=== PATIENT | female | born 1960 | race Caucasian/White ===

== ENCOUNTER 2017-07-30 15:24 | Emergency (ER) | payer BC, MEDICAID ==
[~2017-07-30] VITALS: Ht 167.6 cm; Wt 88.0 kg
[2017-07-30 15:26] VITALS: Ht 167.6 cm; Wt 88.0 kg
[2017-07-30] MEDS ORDERED: KETOROLAC 15 MG INJ IV STA (18:01)
[2017-07-30] MEDS ORDERED: SOD CHLORIDE 0.9% 500 ML IV STA (18:01)
[2017-07-30] MEDS ORDERED: ONDANSETRON 4 MG INJ IV STA (18:01)
[2017-07-30 18:18] LABS: BASOPHILS % 0.4 % (0.0-2.0); EOSINOPHILS % 0.2 % (0.0-7.0); HEMATOCRIT 45.3 % (37.0-47.0); HEMOGLOBIN 15.4 g/dl (12.0-16.0); LYMPHOCYTES # 2.4 10^3/ul (0.8-2.9); LYMPHOCYTES % 24.6 % (15.0-51.0); MEAN CORPUSCULAR HEMOGLOBIN 29.8 pg (29.0-33.0); MEAN CORPUSCULAR VOLUME 87.8 fl (82.0-101.0); MEAN PLATELET VOLUME 9.5 fl (7.4-10.4); MONOCYTE # 0.5 10^3/ul (0.3-0.9); MONOCYTES % 5.1 % (0.0-11.0); NEUTROPHIL # 6.6 10^3/ul (1.6-7.5); NEUTROPHILS % 69.3 % (39.0-77.0); PLATELET COUNT 244 10^3/UL (140-415); RED BLOOD COUNT 5.16 10^6/ul (4.20-5.40); RED CELL DISTRIBUTION WIDTH 13.5 % (11.5-14.5); WHITE BLOOD COUNT 9.6 10^3/ul (4.8-10.8)
[2017-07-30] MEDS ORDERED: LORAZEPAM 0.5 MG TAB PO ONE (18:30)
[2017-07-30 18:37] LABS: ALANINE AMINOTRANSFERASE 38 IU/L (13-69); ALBUMIN 4.6 g/dl (3.3-4.9); ALBUMIN/GLOBULIN RATIO 1.53; ASPARTATE AMINO TRANSFERASE 25 IU/L (15-46); BILIRUBIN,INDIRECT 0.3 mg/dl (0-1.1); BILIRUBIN,TOTAL 0.3 mg/dl (0.2-1.3); BLOOD UREA NITROGEN 12 mg/dl (7-20); CARBON DIOXIDE 29 mmol/L (21-31); CREATININE 0.74 mg/dl (0.44-1.00); GLUCOSE 98 mg/dl (70-220); POTASSIUM 4.1 mmol/L (3.5-5.1); SODIUM 141 mmol/L (135-144); TOTAL PROTEIN 7.6 g/dl (6.1-8.1)
[2017-07-30 18:39] LABS: ALKALINE PHOSPHATASE 101 IU/L (42-121); ANION GAP 12 (8-16); CALCIUM 9.9 mg/dl (8.4-10.2); CHLORIDE 104 mmol/L (97-110)
[2017-07-30 18:52] LABS: TROPONIN-I < 0.012 ng/ml (0.00-0.12)
--- NOTE | 2017-07-30 19:27 | ERD ---
ER Documentation Chief Complaint Date/Time DATE: 07/30/17 TIME: 19:27 Chief Complaint pt c/o hypertension and head and neck pain x 1 wk HPI 56-year-old woman complains of hypertension all week despite using her medications, she has intermittent headaches as well. She has a long history of headaches and denies that this is the worst headache of her life. She has also been feeling anxious. She denies fevers or chills, no neck stiffness, no chest pain or shortness of breath, no vomiting or diarrhea. Patient denies dysuria. ROS All systems reviewed and are negative except as per history of present illness. Medications Home Meds Active Scripts Ibuprofen* (Ibuprofen*) 600 Mg Tablet, 600 MG PO Q8 for PAIN AND/OR INFLAMMATION , #30 TAB Prov:DAVIS CONKLIN MD 07/30/17 Reported Medications Verapamil Hcl* (Isoptin*) 40 Mg Tab, 40 MG PO BID, TAB 07/30/17 Losartan Potassium* (Losartan Potassium*) 50 Mg Tablet, 50 MG PO DAILY, TAB 07/30/17 Aspirin (Aspir-Low) 81 Mg Tablet.dr, 81 MG PO DAILY 07/30/17 Allergies Allergies: Coded Allergies: No Known Allergy (Unverified , 07/30/17) FmHx Family History: No diabetes Physical Exam Vitals Vital Signs Date Time Temp Pulse Resp B/P Pulse Ox O2 Delivery O2 Flow Rate FiO2 07/30/17 20:58 76 18 131/89 99 Room Air 07/30/17 19:07 73 18 135/103 100 Room Air 07/30/17 15:26 99.2 84 16 176/92 99 Physical Exam GENERAL: Well-developed, well-nourished, well-hydrated, in no apparent distress , anxious HEENT: Moist mucous membranes, pink conjunctiva, no cervical spine tenderness or step-off deformities, no goiter, no jaundice or icterus, extraocular movements intact without pain. No submandibular induration, and no pharyngeal erythema NEURO: Alert and oriented 3, cranial nerves II through XII intact bilaterally, pupils equal round reactive to light, no focal deficits or facial asymmetry, sensation intact distally Strength 5/5 in upper and lower extremities bilaterally CARDIAC: Regular rate and rhythm, no murmurs rubs or gallops LUNGS: Clear bilaterally no wheezing crackles or stridor ABDOMEN: Soft nontender, no guarding, no rigidity, no rebound, no psoas sign no obturator sign. Normoactive bowel sounds SKIN: Warm and dry to touch, no abrasions, contusions, or hematomas, no lacerations, no ecchymosis, no target lesions, and without ulcers EXTREMITIES: No clubbing cyanosis or edema, calves are bilaterally symmetrical, no Homans sign, no popliteal cord sign. Distal pulses equal and bilateral PSYCH: Appears anxious Result Diagram: 07/30/17 1800 07/30/17 1800 Results 24 hrs Laboratory Tests Test 07/30/17 18:00 07/30/17 20:00 White Blood Count 9.610^3/ul Red Blood Count 5.1610^6/ul Hemoglobin 15.4g/dl Hematocrit 45.3% Mean Corpuscular Volume 87.8fl Mean Corpuscular Hemoglobin 29.8pg Mean Corpuscular Hemoglobin Concent 34.0g/dl Red Cell Distribution Width 13.5% Platelet Count 71470^3/UL Mean Platelet Volume 9.5fl Neutrophils % 69.3% Lymphocytes % 24.6% Monocytes % 5.1% Eosinophils % 0.2% Basophils % 0.4% Nucleated Red Blood Cells % 0.0/100WBC Neutrophils # 6.610^3/ul Lymphocytes # 2.410^3/ul Monocytes # 0.510^3/ul Eosinophils # 0.010^3/ul Basophils # 0.010^3/ul Nucleated Red Blood Cells # 0.010^3/ul Sodium Level 141mmol/L Potassium Level 4.1mmol/L Chloride Level 104mmol/L Carbon Dioxide Level 29mmol/L Anion Gap 12 Blood Urea Nitrogen 12mg/dl Creatinine 0.74mg/dl Glucose Level 98mg/dl Calcium Level 9.9mg/dl Total Bilirubin 0.3mg/dl Direct Bilirubin 0.00mg/dl Indirect Bilirubin 0.3mg/dl Aspartate Amino Transf (AST/SGOT) 25IU/L Alanine Aminotransferase (ALT/SGPT) 38IU/L Alkaline Phosphatase 101IU/L Troponin I < 0.012ng/ml Total Protein 7.6g/dl Albumin 4.6g/dl Globulin 3.00g/dl Albumin/Globulin Ratio 1.53 Lipase 95U/L Urine Color YELLOW Urine Clarity CLEAR Urine pH 5.0 Urine Specific [place] 1.014 Urine Ketones NEGATIVEmg/dL Urine Nitrite NEGATIVEmg/dL Urine Bilirubin NEGATIVEmg/dL Urine Urobilinogen NEGATIVEmg/dL Urine Leukocyte Esterase NEGATIVELeu/ul Urine Microscopic RBC 3/HPF Urine Microscopic WBC 2/HPF Urine Mucus FEW/HPF Urine Hemoglobin 1+mg/dL Urine Glucose NEGATIVEmg/dL Urine Total Protein NEGATIVEmg/dl Current Medications Medications (Trade) Dose Ordered Sig/[place] Route PRN Reason Start Time Stop Time Status Last Admin Dose Admin Lorazepam 0.5 mg 0.5 mg ONCE ONCE PO 07/30/17 18:30 07/30/17 18:31 DC 07/30/17 18:55 Sodium Chloride (NS) 500 ml @ 500 mls/hr Q1H STAT IV 07/30/17 18:01 07/30/17 19:00 DC 07/30/17 18:54 Ondansetron HCl (Zofran Inj) 4 mg ONCE STAT IV 07/30/17 18:01 07/30/17 18:03 DC 07/30/17 18:55 Ketorolac Tromethamine (Toradol) 15 mg ONCE STAT IV 07/30/17 18:01 07/30/17 18:03 DC 07/30/17 18:55 Procedures/MDM IV line was established patient was placed on cardiac technologist rhythm strip revealed a sinus rhythm at about 80 bpm with upright P and T waves. Patient was afebrile. EKG performed, read by me: 78 bpm, normal sinus rhythm, normal axis, no acute ST segment changes, narrow QRS complex, with good R-wave progression in precordial leads. I administered 500 cc normal saline intravenously, lorazepam 0.5 mg p.o., Toradol 15 mg IV, Zofran 4 mg IV with good response. Symptoms resolved. CBC and electrolytes were normal, liver function tests are normal, troponin was negative, urine analysis was negative for infection. Differential diagnoses considered, included but not limited to acute coronary syndrome, pulmonary embolism, aortic dissection, abdominal aortic aneurysm, sepsis, stroke, meningitis, encephalitis, pneumonia, appendicitis, cholecystitis , bowel obstruction, pyelonephritis, nephrolithiasis, cystitis, as well as metabolic, hematologic, and electrolyte abnormalities. As well as abscess, cellulitis, fractures, and dislocations. Patient feels much better at this time, and vital signs are normal, symptoms have improved. I did give strict instructions to return to the ED if symptoms continue or worsen, patient will otherwise follow-up with primary care physician. Patient understood instructions and agreed to plan. Disclaimer: Inadvertent spelling and grammatical errors are likely due to EHR/ dictation software use and do not reflect on the overall quality of patient care. Also, please note that the electronic time recorded on this note does not necessarily reflect the actual time of the patient encounter. Departure Diagnosis: Primary Impression: Hypertension Hypertension type: essential hypertension Qualified Code: I10 - Essential hypertension Condition: Good Patient Instructions: High Blood Pressure (Hypertension) Referrals: MORENA GUNN MD (PCP) DAVIS CONKLIN MD Jul 30, 2017 19:27
[2017-07-30] MEDS ORDERED: ASPI81TA50 PO (19:34)
[2017-07-30] MEDS ORDERED: LOSA50TA6 PO (19:34)
[2017-07-30] MEDS ORDERED: VER40 PO (19:36)
[2017-07-30 20:27] LABS: ADD UMIC YES; UR ASCORBIC ACID NEGATIVE (NEGATIVE); UR BILIRUBIN (Dip) NEGATIVE (NEGATIVE); UR BLOOD (Dip) 1+ mg/dL (NEGATIVE); UR CLARITY CLEAR (CLEAR); UR COLOR YELLOW (YELLOW); UR GLUCOSE (Dip) NEGATIVE (NEGATIVE); UR KETONES (Dip) NEGATIVE (NEGATIVE); UR LEUKOCYTE ESTERASE (Dip) NEGATIVE Leu/ul (NEGATIVE); UR MUCUS FEW /HPF (NONE SEEN); UR NITRITE (Dip) NEGATIVE (NEGATIVE); UR RBC 3 /HPF (0-5); UR SPECIFIC GRAVITY (Dip) 1.014 (1.003-1.030); UR TOTAL PROTEIN (Dip) NEGATIVE (NEGATIVE); UR UROBILINOGEN (Dip) NEGATIVE (NEGATIVE)
[2017-07-30] MEDS ORDERED: IBUP-1542 PO (20:50)
[2017-07-30 20:58] VITALS: BP 131/89; PULSE 76; RESP 18
== END 2017-07-30 21:09 | disposition home or self-care (01) ==
LOC: E/R 15:24
DX: I10 Essential (primary) hypertension (principal); Z79.82 Long term (current) use of aspirin
CPT/HCPCS: 36415; 80053; 81001; 83690; 84484; 85025; 93005; 96374; 96375; J1885; J2405; J7040; Z7502; Z7610